=== PATIENT | male | born 2000 | race Caucasian/White ===

== ENCOUNTER 2024-05-02 15:01 | Emergency (ER) | payer OTHER ==
[~2024-05-02] VITALS: Ht 167.6 cm; Wt 74.8 kg
[2024-05-02 15:03] VITALS: BP 130/70; PULSE 106; RESP 20; TEMP 98.1; O2SAT 98
[2024-05-02 15:30] LABS: BASOPHILS % (AUTO) 0.5 % (0.0-2.0); EOSINOPHILS % (AUTO) 0.3 % (0.0-4.0); HEMATOCRIT 49.1 % (36-52); HEMOGLOBIN 16.8 g/dL (12.0-18.0); LYMPHOCYTES # (AUTO) 0.7 K/uL (2.0-11.5); LYMPHOCYTES % (AUTO) 9.1 % (20.5-51.1); MEAN CORPUSCULAR HEMOGLOBIN 32 pg (27-31); MEAN CORPUSCULAR HGB CONC 34 g/dL (33-37); MEAN CORPUSCULAR VOLUME 93.3 fL (80-94); MONOCYTES # (AUTO) 0.4 K/uL (0.8-1.0); MONOCYTES % (AUTO) 4.6 % (1.7-9.3); NEUTROPHILS # (AUTO) 6.8 K/uL (1.8-7.7); NEUTROPHILS % (AUTO) 85.5 % (42.2-75.2); PLATELET COUNT (AUTO) 228 K/uL (140-450); RED BLOOD CELL COUNT(AUTO) 5.27 MIL/uL (4.20-6.10); RED CELL DISTRIBUTION WIDTH 13.1 % (11.6-13.7)
[2024-05-02] MEDS: NACL 0.9% 1,000 ML IV ONE (15:30)
[2024-05-02] MEDS ORDERED: KETOROLAC 30 MG/ML VIAL ONE (15:31)
[2024-05-02 15:43] LABS: CALCIUM 9.4 mg/dL (8.5-10.1); CREATININE 1.2 mg/dL (0.6-1.3)
[2024-05-02 15:49] LABS: ALANINE AMINOTRANSFERASE 37 U/L (12-78); ALBUMIN 4.9 g/dL (3.4-5.0); ALKALINE PHOSPHATASE 68 U/L (50-136); ASPARTATE AMINOTRANSFERASE 35 U/L (15-37); BILIRUBIN,DIRECT 0.5 mg/dL (0.0-0.3); LIPASE 18 U/L (16-77); TOTAL BILIRUBIN 1.7 mg/dL (0.0-1.0)
[2024-05-02] MEDS: KETOROLAC 30 MG/ML VIAL IVP ONE (15:49)
[2024-05-02] MEDS: METOCLOPRAMIDE 10 MG/2 ML INJ VIAL IVP ONE (15:52)
[2024-05-02 17:38] VITALS: BP 121/99; PULSE 71; RESP 20; TEMP 98.1; O2SAT 98
== END 2024-05-02 17:38 | disposition home or self-care (01) ==
LOC: MED 15:01
DX: G43.909 Migraine, unspecified, not intractable, without status migrainosus (principal); R11.2 Nausea with vomiting, unspecified; Z79.899 Other long term (current) drug therapy
CPT/HCPCS: 36415; 70450; 80048; 80076; 83690; 84484; 85025; 93005; 96361; 96374; 96375; 99285; J1885; J2765; J7030